=== PATIENT | female | born 1940 ===

== ENCOUNTER 2019-06-03 12:18 | Outpatient (CLI) | payer OTHER | END 2019-06-03 12:41 | disposition home or self-care (01) | LOC: MRI 12:18 | DX: M25.561 Pain in right knee (principal); M25.562 Pain in left knee | CPT/HCPCS: 73721 ==

== ENCOUNTER 2019-06-08 12:22 | Outpatient (CLI) | payer OTHER | END 2019-06-10 09:33 | disposition home or self-care (01) | LOC: RAD 12:22 | DX: R51 Headache (principal) ==

== ENCOUNTER → 2019-06-08 12:53 | Outpatient (CLI) | payer OTHER | END | disposition home or self-care (01) | LOC: LAB 12:53 | DX: D68.8 Other specified coagulation defects (principal); E78.2 Mixed hyperlipidemia; N39.0 Urinary tract infection, site not specified ==